=== PATIENT | female | born 1995 ===

== ENCOUNTER 2017-01-12 18:40 | Observation (INO) | payer OTHER ==
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
[2017-01-12 19:49] LABS: BASO % 0.8 % (0.0-2.0); EOS % 0.8 % (0.0-4.0); HEMATOCRIT 39.6 % (34.0-47.0); LYMPH # 1.5 K/uL (1.0-4.3); LYMPH % 33.7 % (20.0-40.0); MEAN CELL VOLUME 89.5 fl (81.0-99.0); MEAN CORPUSCULAR HEMOGLOBIN 29.1 pg (27.0-31.0); MEAN CORPUSCULAR HGB CONC 32.5 g/dL (33.0-37.0); MEAN PLATELET VOLUME 8.6 fl (7.2-11.7); MONO # 0.3 K/uL (0.0-0.8); MONO % 6.5 % (0.0-10.0); NEUT # 2.6 K/uL (1.8-7.0); NEUT % 58.2 % (50.0-75.0); RED CELL DISTRIBUTION WIDTH 13.6 % (11.5-14.5); WHITE BLOOD COUNT 4.5 K/uL (4.8-10.8)
[2017-01-12 19:56] LABS: ALB/GLOB RATIO 1.6 (1.0-2.1); ALCOHOL SERUM < 10 mg/dl (0-10); ALKALINE PHOSPHATASE 49 U/L (38-126); ALT/SGPT 17 U/L (9-52); AST/SGOT 25 U/L (14-36); BILIRUBIN,TOTAL 0.8 mg/dl (0.2-1.3); BLOOD UREA NITROGEN 13 mg/dl (7-17); CALCIUM 9.2 mg/dL (8.4-10.2); CARBON DIOXIDE 17 mmol/L (22-30); CHLORIDE 108 mmol/L (98-107); GFR AFRICAN-AMERICAN > 60; GLUCOSE,RANDOM 109 mg/dL (65-105); POTASSIUM 3.9 MMOL/L (3.6-5.0); SODIUM 141 mmol/l (132-148); TOTAL PROTEIN 8.3 G/DL (6.3-8.2)
--- NOTE | 2017-01-12 21:17 | CT ---
EXAM: CT Head Without Intravenous Contrast CLINICAL HISTORY: 21 years old, female; Signs and symptoms; Other: Seizure; Patient HX: Pat arrived with her sister to ed , pat state having a seizure just prior to arrived; Additional info: New onset seizure TECHNIQUE: Axial computed tomography images of the head/brain without intravenous contrast. This CT exam was performed using one or more of the following dose reduction techniques: automated exposure control, adjustment of the mA and/or kV according to patient size, and/or use of iterative reconstruction technique. Coronal and sagittal reformatted images were created and reviewed. EXAM DATE/TIME: 01/12/2017 7:00 PM COMPARISON: There are no prior studies for comparison. FINDINGS: Artifacts: Motion artifact degrades image quality. Brain: Ventricles are normal in size and configuration. There is no midline shift. There are no intra-axial or extra-axial mass lesions or areas of hemorrhage. There are no abnormal fluid collections. Whitt-white differentiation is maintained. Ventricles: See above. Bones: Cranial vault is intact. Soft tissues: unremarkable Sinuses: There is no acute sinusitis. Ears and mastoids: Middle ears and mastoids are unremarkable Orbits: Orbits are incompletely imaged IMPRESSION: Slightly limited by patient motion, no acute intracranial abnormality
[2017-01-13 05:16] VITALS: TEMP 98.5
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
[2017-01-13 07:20] LABS: BASO % 0.3 % (0.0-2.0); HEMATOCRIT 38.5 % (34.0-47.0); MEAN CELL VOLUME 88.2 fl (81.0-99.0); MEAN CORPUSCULAR HEMOGLOBIN 29.1 pg (27.0-31.0); MONO # 0.6 K/uL (0.0-0.8); MONO % 5.1 % (0.0-10.0); NEUT % 86.6 % (50.0-75.0); PLATELET COUNT 145 K/uL (130-400); RED CELL DISTRIBUTION WIDTH 13.5 % (11.5-14.5); WHITE BLOOD COUNT 12.7 K/uL (4.8-10.8)
[2017-01-13 07:29] LABS: ALB/GLOB RATIO 1.5 (1.0-2.1); ALKALINE PHOSPHATASE 47 U/L (38-126); ALT/SGPT 32 U/L (9-52); AST/SGOT 24 U/L (14-36); BILIRUBIN,TOTAL 0.8 mg/dl (0.2-1.3); BLOOD UREA NITROGEN 8 mg/dl (7-17); CARBON DIOXIDE 24 mmol/L (22-30); CHLORIDE 106 mmol/L (98-107); GFR AFRICAN-AMERICAN > 60; GLUCOSE,RANDOM 109 mg/dL (65-105); MAGNESIUM 2.3 MG/DL (1.6-2.3); PHOSPHOROUS 3.8 mg/dl (2.5-4.5); POTASSIUM 3.8 MMOL/L (3.6-5.0); SODIUM 141 mmol/l (132-148); TOTAL PROTEIN 7.4 G/DL (6.3-8.2)
[2017-01-13 08:10] VITALS: BP 117/72; PULSE 75; RESP 18; O2SAT 100
--- NOTE | 2017-01-13 10:23 | RAD ---
HISTORY: cough COMPARISON: No prior. FINDINGS: LUNGS: No active pulmonary disease. PLEURA: No significant pleural effusion identified, no pneumothorax apparent. CARDIOVASCULAR: Normal. OSSEOUS STRUCTURES: No significant abnormalities. VISUALIZED UPPER ABDOMEN: Normal. OTHER FINDINGS: None. IMPRESSION: No active disease.
[2017-01-13 10:29] LABS: RBC URINE 4 /hpf (0-3); URINE BILIRUBIN NEGATIVE (NEGATIVE); URINE BLOOD LARGE (NEGATIVE); URINE COLOR YELLOW (YELLOW); URINE GLUCOSE (UA) NEG (Normal); URINE KETONE 80 mg/dL (NEGATIVE); URINE LEUKOCYTE ESTERASE NEG Leu/uL (Negative); URINE PROTEIN NEGATIVE (NEGATIVE); WBC URINE 8 /hpf (0-5)
[2017-01-13 10:41] LABS: NEUTROPHIL 83 % (42-75); TOTAL CELLS COUNTED 100
--- NOTE | 2017-01-13 13:10 | CP.PCM.DIS ---
Provider - Provider Date of Admission: 01/12/17 21:30 Attending physician: Virginia Mariscal MD Time Spent in preparation of Discharge (in minutes): 15 Diagnosis - Discharge Diagnosis (1) Leukocytosis Status: Acute (2) DVT prophylaxis Status: Acute (3) Witnessed seizure Status: Acute Hospital Course - Lab Results Lab Results: Most Recent Lab Values WBC 12.7 K/uL (4.8-10.8) H D 01/13/17 05:20 RBC 4.37 Mil/uL (3.80-5.20) 01/13/17 05:20 Hgb 12.7 g/dL (12.0-16.0) 01/13/17 05:20 Hct 38.5 % (34.0-47.0) 01/13/17 05:20 MCV 88.2 fl (81.0-99.0) 01/13/17 05:20 MCH 29.1 pg (27.0-31.0) 01/13/17 05:20 MCHC 33.0 g/dL (33.0-37.0) 01/13/17 05:20 RDW 13.5 % (11.5-14.5) 01/13/17 05:20 Plt Count 145 K/uL (130-400) 01/13/17 05:20 MPV 9.0 fl (7.2-11.7) 01/13/17 05:20 Neut % (Auto) 86.6 % (50.0-75.0) H 01/13/17 05:20 Lymph % (Auto) 8.0 % (20.0-40.0) L 01/13/17 05:20 Duval % (Auto) 5.1 % (0.0-10.0) 01/13/17 05:20 Eos % (Auto) 0.0 % (0.0-4.0) 01/13/17 05:20 Baso % (Auto) 0.3 % (0.0-2.0) 01/13/17 05:20 Neut # 11.0 K/uL (1.8-7.0) H 01/13/17 05:20 Lymph # 1.0 K/uL (1.0-4.3) 01/13/17 05:20 Duval # 0.6 K/uL (0.0-0.8) 01/13/17 05:20 Eos # 0.0 K/uL (0.0-0.7) 01/13/17 05:20 Baso # 0.0 K/uL (0.0-0.2) 01/13/17 05:20 Neutrophils % (Manual) 83 % (42-75) H 01/13/17 05:20 Lymphocytes % (Manual) 12 % (20-50) L 01/13/17 05:20 Monocytes % (Manual) 5 % (0-10) 01/13/17 05:20 Platelet Estimate Normal (NORMAL) 01/13/17 05:20 RBC Morphology Normal (NORMAL) 01/13/17 05:20 Sodium 141 mmol/l (132-148) 01/13/17 05:20 Potassium 3.8 MMOL/L (3.6-5.0) 01/13/17 05:20 Chloride 106 mmol/L (98-107) 01/13/17 05:20 Carbon Dioxide 24 mmol/L (22-30) 01/13/17 05:20 Anion Gap 14 (10-20) 01/13/17 05:20 BUN 8 mg/dl (7-17) 01/13/17 05:20 Creatinine 0.6 mg/dL (0.7-1.2) L 01/13/17 05:20 Est GFR ( Amer) > 60 01/13/17 05:20 Est GFR (Non-Af Amer) > 60 01/13/17 05:20 POC Glucose (mg/dL) 115 mg/dL (65-110) H 01/12/17 18:55 Random Glucose 109 mg/dL (65-105) H 01/13/17 05:20 Calcium 9.0 mg/dL (8.4-10.2) 01/13/17 05:20 Phosphorus 3.8 mg/dl (2.5-4.5) 01/13/17 05:20 Magnesium 2.3 MG/DL (1.6-2.3) 01/13/17 05:20 Total Bilirubin 0.8 mg/dl (0.2-1.3) 01/13/17 05:20 AST 24 U/L (14-36) 01/13/17 05:20 ALT 32 U/L (9-52) 01/13/17 05:20 Alkaline Phosphatase 47 U/L (38-126) 01/13/17 05:20 Total Protein 7.4 G/DL (6.3-8.2) 01/13/17 05:20 Albumin 4.4 g/dL (3.5-5.0) 01/13/17 05:20 Globulin 3.0 gm/dL (2.2-3.9) 01/13/17 05:20 Albumin/Globulin Ratio 1.5 (1.0-2.1) 01/13/17 05:20 Urine Color Yellow (YELLOW) 01/13/17 10:00 Urine Clarity Slighty-cloudy (Clear) 01/13/17 10:00 Urine pH 6.0 (5.0-8.0) 01/13/17 10:00 Ur Specific Dawson 1.019 (1.003-1.030) 01/13/17 10:00 Urine Protein Negative mg/dL (NEGATIVE) 01/13/17 10:00 Urine Glucose (UA) Neg mg/dL (Normal) 01/13/17 10:00 Urine Ketones 80 mg/dL (NEGATIVE) 01/13/17 10:00 Urine Blood Large (NEGATIVE) 01/13/17 10:00 Urine Nitrate Negative (NEGATIVE) 01/13/17 10:00 Urine Bilirubin Negative (NEGATIVE) 01/13/17 10:00 Urine Urobilinogen 2.0 mg/dL (0.2-1.0) H 01/13/17 10:00 Ur Leukocyte Esterase Neg Macie/uL (Negative) 01/13/17 10:00 Urine RBC (Auto) 4 /hpf (0-3) H 01/13/17 10:00 Urine Microscopic WBC 8 /hpf (0-5) H 01/13/17 10:00 Ur Squamous Epith Cells 8 /hpf (0-5) H 01/13/17 10:00 Urine HCG, Qual Negative (NEGATIVE) 01/13/17 10:00 Urine Opiates Screen Negative (NEGATIVE) 01/12/17 23:15 Urine Methadone Screen Negative (NEGATIVE) 01/12/17 23:15 Ur Barbiturates Screen Negative (NEGATIVE) 01/12/17 23:15 Ur Phencyclidine Scrn Negative (NEGATIVE) 01/12/17 23:15 Ur Amphetamines Screen Negative (NEGATIVE) 01/12/17 23:15 U Benzodiazepines Scrn Negative (NEGATIVE) 01/12/17 23:15 U Oth Cocaine Metabols Negative (NEGATIVE) 01/12/17 23:15 U Cannabinoids Screen Positive (NEGATIVE) H 01/12/17 23:15 Alcohol, Quantitative < 10 mg/dl (0-10) 01/12/17 19:15 Discharge Exam - Head Exam Head Exam: ATRAUMATIC, NORMAL INSPECTION, NORMOCEPHALIC Discharge Plan - Follow Up Plan Condition: FAIR Disposition: AGAINST MEDICAL ADVICE Instructions: New-Onset Seizure in Adults (DC) Additional Instructions: follow up with your primary md within 2-3 days. if seizures recur return to nearest emergency room. you should not drive to further workup is done to prevent injury to self and others. . pt advised no driving. gianni dx-new onset sz signed ama, didnot want to wait for eeg/mri
--- NOTE | 2017-01-15 12:01 | CARD ---
APPROVED REPORT EKG Measurement Heart [id number] MD [id number] <Conclusion> Normal sinus rhythm Normal ECG
== END 2017-01-13 12:12 | disposition left against medical advice (07) ==
LOC: H.ER 18:40 → INTOOBSV 21:30 → H.ERHOLD 21:30 → H.TEL 23:27
PROVIDERS: ADMIT Family Medicine; ATTEND Family Medicine
DX: R56.9 Unspecified convulsions (principal); D72.829 Elevated white blood cell count, unspecified; F17.210 Nicotine dependence, cigarettes, uncomplicated